=== PATIENT | female | born 1985 | race Caucasian/White ===

== ENCOUNTER 2016-12-19 20:42 | Emergency (ER) | payer BC, MEDICAID ==
[~2016-12-19] VITALS: Ht 167.6 cm; Wt 56.7 kg
[2016-12-19 21:45] VITALS: BP 120/70
[2016-12-19 21:55] LABS: APPEARANCE,URINE CLEAR; KETONES,URINE NEGATIVE (NEGATIVE); LEUKOCYTE ESTERASE ,URINE 1+ (NEGATIVE); NITRITE,URINE NEGATIVE (NEGATIVE); PH,URINE 8 (4.5-8.0); PROTEIN,URINE NEGATIVE (NEGATIVE); UROBILINOGEN,URINE NORMAL MG/DL (0.0-1.0)
[2016-12-19 22:04] LABS: BACTERIA,URINE FEW /HPF; RBC,URINE 0-2 /HPF (0 - 2); SQUAMOUS EPITHELIAL CELL,UR FEW /LPF (NONE/OCC)
[2016-12-19] MEDS ORDERED: NITROFURANTOIN100 M2 ORAL (22:53)
[2016-12-19] MEDS ORDERED: IBUPROFEN600 MG ORAL (22:53)
[2016-12-19] MEDS ORDERED: ROBAXIN-750750 MG PO (22:53)
[2016-12-19] MEDS ORDERED: FLUCONAZOLE100 MG ORAL (22:53)
[2016-12-19 23:03] VITALS: BP 120/70
--- NOTE | 2016-12-20 00:50 | Emergency Room Report ---
History of Present Illness General Chief Complaint: General Complaint Source: Patient Present Illness HPI [id number] with 1 week bilateral lower back pain, vaginal bleeding despite period occurring/ending within 1st week of November LBP worse with movement Denies dysuria, polyuria Has history of kidney stone Denies trauma to lower back Denies abd pain, nausea/vomiting, fever/chills Allergies: Coded Allergies: No Known Allergies (Unverified , 12/19/16) Patient History Past Medical History: none Past Surgical History: none Pertinent Family History: none Social History: Denies: alcohol use, drug use, smoking Now: No Immunizations: UTD Reviewed Nursing Documentation: PMH: Agreed, PSxH: Agreed Nursing Documentation-PMH Past Medical History: No Stated History Review of Systems All Other Systems: negative except mentioned in HPI Physical Exam Vital Signs Date Time Temp Pulse Resp B/P Pulse Ox O2 Delivery O2 Flow Rate FiO2 12/19/16 21:27 98.6 78 16 120/70 98 Room Air Sp02 EP Interpretation: reviewed, normal General Appearance: normal inspection, well appearing, no apparent distress, alert, GCS 15, non-toxic Head: normocephalic, atraumatic Eyes: bilateral eye EOMI, bilateral eye PERRL ENT: normal ENT inspection, hearing grossly normal, normal voice Neck: normal inspection, full range of motion, supple, no bony tend Respiratory: normal inspection, lungs clear, normal breath sounds, no respiratory distress, no retraction, no wheezing Cardiovascular #1: regular rate, rhythm, no edema Gastrointestinal: normal inspection, normal bowel sounds, non tender, soft, no guarding, no hernia Genitourinary: no CVA tenderness Musculoskeletal: normal inspection, back normal, normal range of motion, Alia' s Sign negative, other - Mild bilateral paravertebral ttp Neurologic: normal inspection, alert, oriented x3, responsive, hat measurer III-XII nml as tested, motor strength/tone normal, speech normal Psychiatric: normal inspection, judgement/insight normal, mood/affect normal Skin: normal inspection, normal color, no rash Medical Decision Making Diagnostic Impression: Primary Impression: UTI (urinary tract infection) Qualified Codes: N30.00 - Acute cystitis without hematuria Additional Impression: Low back pain Qualified Codes: M54.5 - Low back pain ER Course Acute LBP for 2 weeks and hematuria No blood in UA ?UTI with bacteria +/- MSK LBP strain Rx Macrobid and ibuprofen/robaxin Close PMD followup Last Vital Signs Date Time Temp Pulse Resp B/P Pulse Ox O2 Delivery O2 Flow Rate FiO2 12/19/16 21:27 98.6 78 16 120/70 98 Room Air Status: improved Disposition: HOME, SELF-CARE Condition: Improved Scripts Fluconazole (FLUCONAZOLE) 100 Mg Tablet 100 MG ORAL DAILY for fungal infection from abx for 1 Day, #1 TAB 0 Refills Prov: ANASTASIA FONG M.D. 12/19/16 Nitrofurantoin Monohyd/M-Cryst* (MACROBID 100 MG*) 100 Mg Capsule 100 MG ORAL EVERY 12 HOURS for 7 Days, #14 CAP Prov: ANASTASIA FONG M.D. 12/19/16 Ibuprofen* (MOTRIN*) 600 Mg Tablet 600 MG ORAL THREE TIMES A DAY for 7 Days, #30 TAB 0 Refills Prov: ANASTASIA FONG M.D. 12/19/16 Methocarbamol* (ROBAXIN-750*) 750 Mg Tablet 750 MG PO TID for 7 Days, #30 TAB 0 Refills Prov: ANASTASIA FONG M.D. 12/19/16 Referrals: NON PHYSICIAN (PCP) Patient Instructions: Dysuria, Back Pain, Adult, [id number] Additional Instructions: - Take ALL antibiotics until finished (and take fluconazole if needed) - Take ibuprofen with robaxin and food up to 3x a day for lower back pain - Follow up with your doctor in 2-3 days ANASTASIA FONG M.D. Dec 20, 2016 00:50
== END 2016-12-19 23:03 | disposition home or self-care (01) ==
LOC: EMR 22:57
DX: N39.0 Urinary tract infection, site not specified (principal); S39.012A Strain of muscle, fascia and tendon of lower back, initial encounter; X58.XXXA Exposure to other specified factors, initial encounter; Y92.89 Other specified places as the place of occurrence of the external cause
CPT/HCPCS: 81003; 81025; 99284